=== PATIENT | female | born 1955 | race Caucasian/White ===

== ENCOUNTER → 2020-11-04 | Outpatient (CLI) | payer OTHER ==
[2020-11-04] VITALS (8 sets, daily range): BP systolic 12–122; BP diastolic 63–75
[~2020-11-04] VITALS: Ht 162.6 cm; Wt 61.7 kg
[~2020-11-04] MED LIST: ALPRAZOLAM XR3 MG PO; LEVO-T75 MCG PO; TOPROL XL50 MG PO
[2020-11-04 12:34] LABS: HEMATOCRIT 43.3 % (37.0-47.0); HEMOGLOBIN 14.7 gm/dL (12.0-15.0); MCH 28.9 pg (26.0-34.0); MCHC 33.9 g/dL (28.0-37.0); MCV 85.3 fL (80.0-100.0); MPV 8.8 fl. (7.2-11.1); RBC 5.08 mil/uL (4.20-5.00); RDW-CV 13.3 % (10.5-14.5); WBC 5.2 thou/uL (4.0-11.0)
[2020-11-04 12:43] LABS: ANION GAP 7 mmol/L (7-16); BUN 13 mg/dL (7-18); CALCIUM 9.1 mg/dL (8.5-10.1); CHLORIDE 106 mmol/L (98-107); CO2 29 mmol/L (21-32); CREATININE 0.8 mg/dL (0.6-1.3); GLUCOSE 103 mg/dL (70-99); SODIUM 142 mmol/L (136-145)
[2020-11-04 12:48] LABS: ALBUMIN 4.3 g/dL (3.4-5.0); ALKALINE PHOSPHATASE 89 U/L (46-116); CHOLESTEROL 264 mg/dL (<200); HDL CHOLESTEROL 55 mg/dL (>40); LDL CHOLESTEROL 187 mg/dL (<100); SERUM ASSESSMENT Clear; SGOT 21 U/L (15-37); SGPT 25 U/L (30-65); TC:HDL 4.8 Ratio (Not establshd); TOTAL BILIRUBIN 0.6 mg/dL (<0.1-1.0); TOTAL PROTEIN 7.8 g/dL (6.4-8.2); TRIGLYCERIDE 111 mg/dL (<150); VLDL 22 mg/dL (<40)
[2020-11-04 12:50] LABS: APTT 27.1 Seconds (25.0-31.3); PROTIME 10.6 Seconds (9.20-11.50)
--- NOTE | 2020-11-04 13:07 | EKG ---
[place] [address] ELECTROCARDIOGRAM REPORT Name: GIULIA BARILLAS Room: [facility]#: [id number] Admission: 11/04/20 Attend Phys: J Carlos Lopez, Discharge: Date of : 59 Date of Service: 11/04/20 1254 Report #: [id number] THIS REPORT FOR: //name// [facility] Test Date: 2020-11-04 Test Time: 12:54:57 Pat Name: GIULIA BARILLAS Department: Room: Gender: F Load Dispatcher Local: : 1955 Requested By: J Carlos Loepz Order Number: [id number] Reading MD: J Carlos Lopez Measurements Intervals [place] Rate: 62 P: 39 PA: 131 QRS: -21 QRSD: 105 T: -52 QT: 421 QTc: 428 Interpretive Statements Sinus rhythm Borderline left axis deviation Low voltage, precordial leads RSR' in V1 or V2, probably normal variant Consider anterior infarct Borderline repolarization abnormality Baseline wander in lead(s) V6 No previous ECG available for comparison Electronically Signed On 11-04-2020 13:06:57 CDT by J Carlos Lopez [email or web address] <ELECTRONICALLY SIGNED> By: J Carlos Lopez MD, FACC 11/04/20 1306 1254 1254 J Carlos Lopez MD, FACC /EPI
--- NOTE | 2020-11-04 15:55 | CARD ---
[address] [address] CARDIAC CATH REPORT Name: GIULIA BARILLAS Room: [facility]..#: [id number] Admission: 11/04/20 Attend Phys: J Carlos Lopez MD Discharge: Date of : 59 Report #: [id number] THIS REPORT FOR: cc: FAM - No family physician/PCP FAM - No family physician/PCP J Carlos Lopez MD [facility] ~ APPROVED REPORT Study performed: 11/04/2020 12:35:42 Patient Details Patient Status: Out-Patient Room #: The patient is a 65 year-old female Event Personnel J Carlos Lopez Copper Plater, Sada Christian RN RN, Chuckie Osborn [employer] Monitor, Caio Prakash RTR Scrub Procedures Performed Left Heart Catheterization, Left Ventriculogram, Coronary Angiography Indication Abnormal ECG, Chest pain Risk Factors Family History Procedure Narrative A [place] 6 FR sheath was inserted into the . Coronary angiography was performed using coronary diagnostic catheters. The right coronary system was accessed and visualized with a JR4 6fr catheter. The left coronary system was accessed and visualized with a JL4 6fr catheter. The left ventricle was accessed and visualized with a PC: Pig 6fr catheter. Closure device was deployed with a Fr MynxGrip 6/7F. The patient tolerated the procedure well and there were no complications associated with the procedure. There was no hematoma. Intraoperative Conscious Sedation Sedation start time: 1401 Case end Time: 1412 Versed 1 mg Fluoro Time: 1.6 [place] [address] CARDIAC CATH REPORT Name: GIULIA BARILLAS Room: [facility]#: [id number] Admission: 11/04/20 Attend Phys: J Carlos Lopez MD Discharge: Date of : 59 Report #: [id number] Dose: DAP 87206 cGycm2 330 mGy Contrast Type and Amount: Visipaque 110 ml Coronary Angiography The patient's coronary anatomy is right dominant. Diagnostic Cath Left Main The left main coronary artery is normal and trifurcates into a left anterior descending, intermediate ramus and circumflex coronary artery. LAD The left anterior descending coronary artery is normal in its proximal mid and distal portion. Diagonal 1 A moderate-sized first diagonal branch is normal. Diagonal 2 A distal moderate sized second obtuse marginal branch is normal. Circumflex The circumflex coronary artery is normal in its proximal mid and distal portion. OM1 The first obtuse marginal branch is normal. Right Coronary The right coronary artery is normal in its proximal mid and distal portion. R PDA The right PDA is normal. RPLV The right posterior lateral LV branch is normal. Ramus A moderate sized intermediate ramus branch with marginal distribution is normal. Left Ventriculography The left ventricle is normal in size with normal contractility. The left ventricular ejection fraction is estimated to be 65-70%. Left ventricular wall motion abnormalities are not present. Hemodynamics The aortic pressure is 139/70 mmHg with a mean of 50 mmHg. The left ventricular pressure is 130/0 mmHg with a mean of mmHg. The left ventricular end diastolic pressure is 10 mmHg. Conclusion 1. Normal coronary arteries. 2. Normal left ventricular systolic function. 3. Normal left-ventricular end-[place] [address] CARDIAC CATH REPORT Name: GIULIA BARILLAS Room: [facility]#: [id number] Admission: 11/04/20 Attend Phys: J Carlos Lopez MD Discharge: Date of : 59 Report #: [id number] Recommendations 1. Continue current medical management. <ELECTRONICALLY SIGNED> By: J Carlos Lopez MD, FACC 11/04/20 1555 1555 1555Micgabrielle Lopez MD, FACC /INF
== END | disposition home or self-care (01) ==
LOC: M.CL 11:38
PROVIDERS: ATTEND Internal Medicine Cardiovascular Disease
DX: R07.9 Chest pain, unspecified (principal); R94.31 Abnormal electrocardiogram [ECG] [EKG]; I48.91 Unspecified atrial fibrillation; E03.9 Hypothyroidism, unspecified; Z98.890 Other specified postprocedural states; Z79.899 Other long term (current) drug therapy; Z79.01 Long term (current) use of anticoagulants; Z91.041 Radiographic dye allergy status; Z88.8 Allergy status to other drugs, medicaments and biological substances